=== PATIENT | male | born 1955 | race Caucasian/White ===

== ENCOUNTER → 2018-12-09 | Outpatient (CLI) | payer BC | LOC: GMAL 14:16 | PROVIDERS: ATTEND Family Medicine | DX: G47.62 Sleep related leg cramps (principal); I10 Essential (primary) hypertension; R53.82 Chronic fatigue, unspecified; Z13.220 Encounter for screening for lipoid disorders ==

== ENCOUNTER → 2019-03-13 | Outpatient (CLI) | payer BC | LOC: GMAL 11:13 | PROVIDERS: ATTEND Family Medicine | DX: E53.8 Deficiency of other specified B group vitamins (principal); E55.9 Vitamin D deficiency, unspecified; I10 Essential (primary) hypertension; Z12.5 Encounter for screening for malignant neoplasm of prostate; Z79.899 Other long term (current) drug therapy ==

== ENCOUNTER → 2019-09-12 | Outpatient (CLI) | payer BC | LOC: GMAL 10:46 | PROVIDERS: ATTEND Family Medicine | DX: R53.82 Chronic fatigue, unspecified (principal); E83.42 Hypomagnesemia; Z79.899 Other long term (current) drug therapy ==

== ENCOUNTER → 2020-03-15 | Outpatient (CLI) | payer BC | LOC: GMAL 11:42 | PROVIDERS: ATTEND Family Medicine | DX: I10 Essential (primary) hypertension (principal); Z79.899 Other long term (current) drug therapy; Z12.5 Encounter for screening for malignant neoplasm of prostate ==